=== PATIENT | male | born 1995 | race Caucasian/White ===

== ENCOUNTER 2017-01-30 15:53 | Emergency (ER) | payer SELFPAY ==
[~2017-01-30] VITALS: Ht 167.6 cm; Wt 52.3 kg
[2017-01-30] MEDS ORDERED: HYDROCODONE/ACETAMINOPHEN 5-325 MG TABLET PO ONE (16:30)
[2017-01-30] MEDS ORDERED: PERTUSS(ACELL),DIPH,TET VAC/PF 0.5 ML VIAL IM ONE (16:30)
[2017-01-30] MEDS ORDERED: BUPIVACAINE HCL/PF 0.25% 10 ML VIAL INJ ONE (16:30)
[2017-01-30] MEDS ORDERED: POVIDONE-IODINE 10% 15 ML SOLUTION UD TP ONE (16:30)
[2017-01-30 19:24] VITALS: BP 110/58
== END 2017-01-30 19:50 | disposition home or self-care (01) ==
LOC: EMS 15:55
DX: S21.112A Laceration without foreign body of left front wall of thorax without penetration into thoracic cavity, initial encounter (principal); S21.111A Laceration without foreign body of right front wall of thorax without penetration into thoracic cavity, initial encounter; S05.41XA Penetrating wound of orbit with or without foreign body, right eye, initial encounter; F17.210 Nicotine dependence, cigarettes, uncomplicated; F12.90 Cannabis use, unspecified, uncomplicated; V47.5XXA Car driver injured in collision with fixed or stationary object in traffic accident, initial encounter; Y93.89 Activity, other specified; Y92.89 Other specified places as the place of occurrence of the external cause; Y99.8 Other external cause status
CPT/HCPCS: 12013; 70450; 71020; 71250; 72125; 90471; 90715; 93005; 99284; J3490